=== PATIENT | female | born 1975 | race Caucasian/White ===

== ENCOUNTER → 2024-01-11 09:21 | Outpatient (REF) | payer OTHER, SELFPAY | LOC: HWWDC 09:21 | PROVIDERS: ATTENDING PHYSICIAN Family Medicine | DX: Z12.31 Encounter for screening mammogram for malignant neoplasm of breast (principal) | CPT/HCPCS: 77063; 77067 ==

== ENCOUNTER 2024-05-29 15:15 | Emergency (ER) | payer BC, SELFPAY ==
[2024-05-29 15:24] VITALS: BP 155/93
[2024-05-29 15:43] LABS: % Basophils 0.5 % (0-2); % Eosinophils 3.1 % (0-6); % Immature Granulocytes 0.7 % (0-0.5); % Monocytes 5.7 % (1.7-9.3); Absolute Basophils 0.1 10^3/uL (0-0.2); Absolute Eosinophils 0.4 10^3/uL (0-0.7); Absolute Immature Granulocytes 0.1 10^3/uL (0-0.05); Absolute Lymphocytes 3.3 10^3/uL (1.2-3.4); Absolute Monocytes 0.7 10^3/uL (0.1-0.6); Absolute Neutrophils 7.6 10^3/uL (1.4-6.5); Hematocrit 41.1 % (37.0-47.0); Hemoglobin 14.2 g/dL (12.0-16.0); Mean Corp Hgb Conc. 34.5 g/dL (33.0-37.0); Mean Corpuscular Hgb 31.2 pg (27.0-31.0); Mean Corpuscular Volume 90.3 fL (81.0-99.0); Nucleated Red Blood Cells % 0 %; Platelet Count 244 10^3/uL (130-400); Red Blood Cell Count 4.55 10^6/uL (4.20-5.40); Red Cell Dist. Width 12.7 % (11.5-14.5); White Blood Cell Count 12.1 10^3/uL (4.8-10.8)
[2024-05-29 16:00] LABS: ALT (SGPT) 62 U/L (0-35); AST (SGOT) 41 U/L (14-36); Albumin 4.3 g/dl (3.5-5.0); Alkaline Phosphatase 75 U/L (38-126); Blood Urea Nitrogen 11 mg/dl (7-17); Carbon Dioxide 26 mmol/L (22-30); Chloride 105 mmol/L (98-107); Glucose 172 mg/dl (70-99); Potassium 4.3 mmol/L (3.5-5.1); Sodium 138 mmol/L (135-145); Total Bilirubin 1.3 mg/dl (0.2-1.3); Total Protein 7.2 g/dl (6.3-8.2); eGFR > 60.00
--- NOTE | 2024-05-29 17:08 | EDRN ---
Dr. Byrnes in to see pt.
--- NOTE | 2024-05-29 17:08 | ED.GENMED ---
History of Present Illness
General
Chief Complaint: Visual Problem
Time Seen by Provider: 05/29/24 17:07
History of Present Illness
History of Present Illness:
TIME OF INITIAL ENCOUNTER: 5:10 PM
HPI: About 11 days ago, the patient had a rather significant right sided headache posteriorly. She went to urgent care The following day was started on steroids. The headache is now resolved but she later developed left-sided paresthesias with
some vague vision changes. She wears glasses for reading.
EXAM:
GENERAL: Well appearing in no distress
HEENT: Moist oral mucosa, visual acuity 20/25 in each eye
CARDIOVASCULAR: No murmurs, normal heart rate, regular rhythm, No chest wall tenderness
PULMONARY: No respiratory distress, breath sounds are clear and equal
ABDOMEN: Soft with no peritoneal signs, no tenderness
NEUROLOGIC: Excellent strength all extremities, no coordination deficits, no field cuts on exam, NIHSS equals 0, no sensory deficits
PSYCHIATRIC: Appropriate mental status, normal insight and judgement
EXTREMITIES: Nontender, no edema, moves all extremities equally
SKIN: No rash, no lesions
NUMBER AND COMPLEXITY OF PROBLEMS ADDRESSED AT THE ENCOUNTER
� Chronic conditions affecting care: Hyperlipidemia
� Acute Exacerbation and/or Progression of Chronic Illness:
� Differential Diagnosis includes: Complex migraine, typical migraine, tension headache, nonspecific paresthesias, electrolyte abnormality, anxiety, radiculopathy, CVA unlikely as stroke scale 0
AMOUNT AND/OR COMPLEXITY OF DATA TO BE REVIEWED AND ANALYZED
� I performed an independent evaluation of and my interpretation is:
EKG:
CT: CAT scan of the brain shows no acute abnormality
X-rays:
Laboratory Studies: Minimal white count elevation at 12.1 (was recently on steroids), hemoglobin normal, glucose 172, minimal transaminase elevation
Other:
� Review of other/old records: No old records available for review in [facility]
� Clinical information was obtained by an independent historian: I spoke to son at bedside.
� Prescriptions/Medications Considered but not given:
� Further testing considered but not performed:
RISK OF COMPLICATIONS AND/OR MORBIDITY OR MORTALITY OF PATIENT MANAGEMENT
� Social determinants of health affecting care: Lives at home
� Discussion with other providers:
� Escalation of care including admission/observation vs risk of discharge considered: The patient has a stroke scale of 0. CT imaging was obtained that she had unilateral symptoms. Her visual acuity is near normal. She is very
well-appearing.
ANY OTHER UPDATES:
7 PM: I reassessed patient. No significant finding on ED workup. No new issues. I also spoke to at bedside. I have also given her the contact information for neurology for follow-up and also recommended PMD follow-up as well.
Phy Exam
Physical Exam
Physical Exam:
See HPI
Course
Orders/Labs/Results
Orders:
Orders
05/29/24 15:26
CT Head W/o Iv Contrast Urgent
Comment: since 05/19
Reason For Exam: headache, L sided numbness, L eye blurry vision
05/29/24 15:31
Comprehensive Metabolic Panel Urgent
05/29/24 15:32
Complete Blood Count/With Diff Urgent
Abnormal Lab Results
05/29/24 03
15:31 15:32
WBC 12.1 H 10^3/uL
(4.8-10.8)
MCH 31.2 H pg
(27.0-31.0)
Abs Immat Gran (auto) 0.1 H 10^3/uL
(0-0.05)
Absolute Neuts (auto) 7.6 H 10^3/uL
(1.4-6.5)
Absolute Monos (auto) 0.7 H 10^3/uL
(0.1-0.6)
Immature Gran % 0.7 H %
(0-0.5)
Glucose 172 H mg/dl
(70-99)
AST 41 H U/L
(14-36)
ALT 62 H U/L
(0-35)
05/29/24 15:32
05/29/24 15:31
Vital Signs
Initial and Last Documented VS:
Initial Vital Signs
Temp Pulse Resp BP Pulse Ox
36.7 C 98 18 155/93 99
05/29/24 15:24 05/29/24 15:24 05/29/24 15:24 05/29/24 15:24 05/29/24 15:24
Last Documented Vital Signs
Temp Pulse Resp BP Pulse Ox
36.7 C 96 16 128/78 99
05/29/24 15:24 05/29/24 18:49 05/29/24 18:49 05/29/24 18:49 05/29/24 18:49
*Critical Care Note
Total Time (30-74mins, 75-104mins- exclusive of procedures): Not Applicable
ED Attending Note
-
Portions of this chart may have been created with voice recognition software.� Occasional wrong word or��sound alike� substitutions may have occurred due to the inherent limitations of voice recognition software.
Discharge Plan
Departure
Referrals:
Josué Negron, DO [Family Provider] -
Interventions
Interventions:
*Risk Screen - Suicide Last Done: 05/29/24 15:24
*General Assessment Last Done: 05/29/24 15:24
*Neglect/Abuse Screening Last Done: 05/29/24 17:58
*ED- Fall Risk Assessment Last Done: 05/29/24 17:58
*ED COVID-19 Vaccine History Last Done: 05/29/24 17:58
ED- Neurological Assessment Last Done: 05/29/24 18:10
ED-EENT Assessment Last Done: 05/29/24 18:19
ED Swallowing Screen Last Done: 05/29/24 18:10
Discharge Date and Time
Print Language: [place]
--- NOTE | 2024-05-29 18:00 | EDRN ---
Pt states her symptoms started w/ pain to her posterior head on R side. Pt went to on Tuesday and was placed on steroids for 7 days (seen on 05/18 and started steroids on 05/19). Pt got blurred vision after starting steroids then 4-5 days later
started w/ numbness on her left side.
[2024-05-29 18:05] VITALS: BP 124/69
[2024-05-29 18:49] VITALS: BP 128/78
== END 2024-05-29 19:26 | disposition home or self-care (01) ==
LOC: EMR 15:15
PROVIDERS: Emergency Medicine; EMERGENCY PHYSICIAN Emergency Medicine; FAMILY PHYSICIAN Family Medicine
DX: R20.2 Paresthesia of skin (principal); E78.5 Hyperlipidemia, unspecified
CPT/HCPCS: 99284; 70450; 80053; 85025

== ENCOUNTER → 2024-09-03 14:31 | Outpatient (REF) | payer BC, SELFPAY | LOC: PAVMRI 14:31 | PROVIDERS: ATTENDING PHYSICIAN Specialist | DX: R20.0 Anesthesia of skin (principal); R51.9 Headache, unspecified | CPT/HCPCS: 70553; A9575 ==

== ENCOUNTER → 2025-02-12 14:15 | Outpatient (REF) | payer BC, SELFPAY | LOC: HWWDC 14:15 | DX: Z12.31 Encounter for screening mammogram for malignant neoplasm of breast (principal) | CPT/HCPCS: 77063; 77067 ==